=== PATIENT | male | born 1985 | race Caucasian/White ===

== ENCOUNTER 2017-04-11 16:43 | Emergency (ER) | payer SELFPAY ==
[~2017-04-11] VITALS: Ht 167.6 cm; Wt 73.5 kg
[2017-04-11 17:01] VITALS: BP 128/76; Ht 167.6 cm; Wt 73.5 kg
== END 2017-04-11 19:40 | disposition home or self-care (01) ==
LOC: ED 16:43
DX: M12.531 Traumatic arthropathy, right wrist (principal)
CPT/HCPCS: J1885

== ENCOUNTER 2019-04-14 15:43 | Emergency (ER) | payer SELFPAY ==
[~2019-04-14] VITALS: Ht 167.6 cm; Wt 85.7 kg
[2019-04-14 15:56] VITALS: Ht 167.6 cm; Wt 85.7 kg
[2019-04-14 18:00] VITALS: BP 126/88
== END 2019-04-14 18:45 | disposition home or self-care (01) ==
LOC: ED 15:43
DX: H57.04 Mydriasis (principal); S05.01XA Injury of conjunctiva and corneal abrasion without foreign body, right eye, initial encounter; W22.8XXA Striking against or struck by other objects, initial encounter; Y93.89 Activity, other specified; Y92.89 Other specified places as the place of occurrence of the external cause; Y99.8 Other external cause status
CPT/HCPCS: 90715